=== PATIENT | female | born 1960 | race Caucasian/White ===

== ENCOUNTER 2017-05-30 12:49 | Emergency (ER) | payer OTHER ==
[~2017-05-30] VITALS: Ht 167.6 cm; Wt 72.6 kg
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
[2017-05-30] MEDS ORDERED: HALO5TAB PO (14:20)
[2017-05-30 14:25] VITALS: BP 116/86
== END 2017-05-30 14:25 | disposition home or self-care (01) ==
LOC: EDUNIT# 12:49 → ER 12:53
DX: F41.9 Anxiety disorder, unspecified (principal); F43.10 Post-traumatic stress disorder, unspecified; Z98.890 Other specified postprocedural states; Z98.51 Tubal ligation status; Z62.810 Personal history of physical and sexual abuse in childhood
CPT/HCPCS: 99283

== ENCOUNTER → 2023-05-19 | Outpatient (CLI) | payer BC, OTHER ==
[~2023-05-19] MED LIST: HALO5TAB PO
--- NOTE | 2023-05-20 13:37 | Diagnostic Imaging Report ---
Indication: Routine screening. No prior mammograms are available for comparison. 2-D and 3-D bilateral screening mammography was performed with CAD. The current study was also evaluated with a Computer Aided Detection (CAD) system. Both breasts are heterogeneously dense, limiting the sensitivity of mammography. No mass or malignant-appearing microcalcifications are identified. Axillae are unremarkable. IMPRESSION: BI-RADS Category 1 No mammographic features suspicious for malignancy are identified. ACR BI-RADS Category 1: Negative. Result letter will be mailed to the patient. Note: At least 10% of breast cancer is not imaged by mammography. Dictated by: Dictated on workstation # [id number]
== END ==
LOC: RAD 15:45
PROVIDERS: ATTEND Nurse Practitioner Family
DX: Z12.31 Encounter for screening mammogram for malignant neoplasm of breast (principal)
CPT/HCPCS: 77063; 77067